=== PATIENT | female | born 1955 | race American Indian/Alaskan Native ===

== ENCOUNTER 2020-11-11 12:25 | Emergency (ER) | payer BC, MEDICARE ==
[2020-11-11 12:42] VITALS: BP 155/77
--- NOTE | 2020-11-11 13:25 | Emergency Department Report ---
ED General Adult HPI - General Chief complaint: Headache Stated complaint: DIZZY/HEADACHE/EAR PAIN Source: patient Mode of arrival: Ambulatory Limitations: No Limitations - History of Present Illness Initial comments: The patient was evaluated in the emergency department for symptoms described in the history of present illness. He/she was evaluated in the context of the global COVID-19 pandemic, which necessitated consideration that the patient might be at risk for infection with the virus that causes COVID-19. Institutional protocols and algorithms that pertain to the evaluation of patients at risk for COVID-19 are in a state of rapid change based on information released by regulatory bodies including the CDC and federal and state organizations. These policies and algorithms were followed during the patient's care in the emergency department. Please note that these policies, procedures and recommendations changed on a rapid basis. 65-year-old -British female presents with complaint of right-sided headache dizziness and sore throat as well as right earache for 2 to 3 days. Patient reports she has a history of vertigo and has been in physical therapy does not feel that it is helping. She does admit that she suffers from anxiety GERD diabetes and right rotator cuff tear. Patient reports that the dizziness is worse when she is looking down or turning to the right when she is lying down. Patient does admit to intermittent nausea but no vomiting. Patient states most of the symptoms started in March 17, 2020. Patient states that she had an endoscopy and colonoscopy April 10. States her next procedure is March 04 any want for another endoscopy. She does complain of neck soreness when she turns to the right. She states that her blood sugars are stable. Does state that she does sometimes get intermittent weakness in her right hand. She complains of head pressure and its mostly on the right side. She states she is up-to-date on getting her eyes examined and denies any change in vision recently. Onset/Timin -: days(s) Location: head, neck Severity scale (0 -10): 8 Quality: other (Feels pressure) Consistency: constant Improves with: none Worsens with: movement, other (Lying down) Associated Symptoms: headaches, nausea/vomiting (No vomiting), other (Headache). denies: diaphoresis, fever/chills, shortness of breath Treatments Prior to Arrival: none - Related Data Home Medications Medication Instructions Recorded Confirmed Last Taken ALPRAZolam 0.5 mg PO PRN PRN 01/27/18 01/27/18 01/25/18 AtorvaSTATin 40 mg PO DAILY 01/27/18 01/27/18 01/26/18 Bisoprolol Fumarate 100 mg PO DAILY 01/27/18 01/27/18 01/26/18 Dicyclomine 10 mg PO PRN PRN 01/27/18 01/27/18 Unknown Glimepiride 2 mg PO DAILY 01/27/18 01/27/18 01/26/18 Losartan Potassium 100 mg PO DAILY 01/27/18 01/27/18 01/27/18 Pantoprazole Sodium 40 mg PO PRN PRN 01/27/18 01/27/18 Unknown Triamterene-Hctz 37.5-25 mg Tb 1 tab PO DAILY 01/27/18 01/27/18 01/27/18 Vitamin D3 50,000 units PO QWEEK 01/27/18 01/27/18 01/23/18 oxyCODONE /ACETAMINOPHEN 5 - 325 mg PO PRN PRN 01/27/18 01/27/18 01/24/18 Previous Rx's Medication Instructions Recorded Last Taken Type Amoxicillin/K Clav Tab [Augmentin 1 tab PO Q12HR 7 Days #14 tab 11/11/20 Unknown Rx 875 mg] Ondansetron [Zofran Odt] 4 mg PO Q8HR #12 tab.rapdis 11/11/20 Unknown Rx Allergies Allergy/AdvReac Type Severity Reaction Status Date / Time codeine AdvReac Mild Itching Verified 01/27/18 07:46 ED Review of Systems ROS: Stated complaint: DIZZY/HEADACHE/EAR PAIN Other details as noted in HPI Comment: All other systems reviewed and negative ED Past Medical Hx - Past Medical History Previous Medical History?: Yes Hx Hypertension: Yes Hx Diabetes: Yes Additional medical history: Neck pain, Vertigo - Surgical History Past Surgical History?: Yes Hx Breast Surgery: Yes (REDUCTION) - Social History Smoking Status: Never Smoker Substance Use Type: None - Medications Home Medications: Home Medications Medication Instructions Recorded Confirmed Last Taken Type ALPRAZolam 0.5 mg PO PRN PRN 01/27/18 01/27/18 01/25/18 History AtorvaSTATin 40 mg PO DAILY 01/27/18 01/27/18 01/26/18 History Bisoprolol Fumarate 100 mg PO DAILY 01/27/18 01/27/18 01/26/18 History Dicyclomine 10 mg PO PRN PRN 01/27/18 01/27/18 Unknown History Glimepiride 2 mg PO DAILY 01/27/18 01/27/18 01/26/18 History Losartan Potassium 100 mg PO DAILY 01/27/18 01/27/18 01/27/18 History Pantoprazole Sodium 40 mg PO PRN PRN 01/27/18 01/27/18 Unknown History Triamterene-Hctz 37.5-25 mg Tb 1 tab PO DAILY 01/27/18 01/27/18 01/27/18 History Vitamin D3 50,000 units PO QWEEK 01/27/18 01/27/18 01/23/18 History oxyCODONE /ACETAMINOPHEN 5 - 325 mg PO PRN PRN 01/27/18 01/27/18 01/24/18 History Amoxicillin/K Clav Tab [Augmentin 1 tab PO Q12HR 7 Days #14 tab 11/11/20 Unknown Rx 875 mg] Ondansetron [Zofran Odt] 4 mg PO Q8HR #12 tab.rapdis 11/11/20 Unknown Rx ED Physical Exam - General Limitations: No Limitations General appearance: alert, in no apparent distress - Head Head exam: Present: atraumatic, normocephalic - Eye Eye exam: Present: normal appearance - ENT ENT exam: Present: mucous membranes moist, normal external ear exam - Expanded ENT Exam Expanded Ear exam: Present: other (Right tympanic membrane fluid level appreciated) Mouth exam: Present: normal external inspection - Neck Neck exam: Present: normal inspection - Respiratory Respiratory exam: Present: normal lung sounds bilaterally - Cardiovascular Cardiovascular Exam: Present: regular rate, normal rhythm. Absent: systolic murmur, diastolic murmur, rubs, gallop - GI/Abdominal GI/Abdominal exam: Present: soft, normal bowel sounds - Extremities Exam Extremities exam: Present: normal inspection, full ROM - Back Exam Back exam: Present: normal inspection - Neurological Exam Neurological exam: Present: alert, oriented X3, normal gait - Expanded Neurological Exam Expanded Cranial nerves: EOM's Intact: Normal, Gag Reflex: Normal, Tongue Deviation: Norm al, Nystagmus: Normal, Facial Sensation: Normal, Facial Palsy with Forehead Movement: Normal, Facial Palsy without Forehead Movement: Normal Cerebellar function: Finger to Nose: Normal, Heel to Peterson: Normal, Romberg: Normal Upper motor neuron: Pavan Neglect: Normal, Pronator Drift: Normal, Babinski Sign: Normal, Sensory Extinction: Normal Sensory exam: Upper Extremity Light Touch: Normal, Upper Extremity Pin Prick: Normal, Upper Extremity Temperature: Normal, UE 2 Point Discrimination: Normal, Lower Extremity Light Touch: Normal, Lower Extremity Pin Prick: Normal, Lower Extremity Temperature: Normal, LE 2 Point Discrimination: Normal Motor strength exam: RUE: 4, LUE: 4, RLE: 4, LLE: 4 Best Eye Response (Jewett): (4) open spontaneously Best Motor Response (Jewett): (6) obeys commands Best Verbal Response (Jewett): (5) oriented Jewett Total: 15 - Psychiatric Psychiatric exam: Present: normal affect, normal mood - Skin Skin exam: Present: warm, dry, intact, normal color. Absent: rash ED Course Vital Signs 11/11/20 12:36 Temperature 98.9 F Pulse Rate 60 Respiratory 20 Rate Blood Pressure 155/77 O2 Sat by Pulse 99 Oximetry ED Medical Decision Making - Radiology Data Radiology results: report reviewed Study Comments [facility] [address] [place] [address] Cat Scan Report Signed Patient: GRACY JONES MR#: [id number] : 1955 Acct:[id number] Age/Sex: 65 / F ADM Date: 11/11/20 Loc: ED Attending Dr: Ordering Physician: NELLA MCGRAW Date of Service: 11/11/20 Procedure(s): CT head/brain wo con Accession Number(s): [id number] cc: NELLA MCGRAW CT HEAD WITHOUT CONTRAST INDICATION / CLINICAL INFORMATION: dizziness head pressure. TECHNIQUE: All CT scans at this location are performed using CT dose reduction for ALARA by means of automated exposure control. COMPARISON: None available. FINDINGS: HEMORRHAGE: None. EXTRA-AXIAL SPACES: Normal in size and morphology for the patient's age. VENTRICULAR SYSTEM: Normal in size and morphology for the patient's age. CEREBRAL PARENCHYMA: No significant abnormality. No acute territorial infarct. MIDLINE SHIFT OR HERNIATION: None. CEREBELLUM / BRAINSTEM: No significant abnormality. ORBITS: Normal as visualized. SOFT TISSUES of HEAD: No significant abnormality. CALVARIUM: No significant abnormality. PARANASAL SINUSES / MASTOID AIR CELLS: Normal as visualized. ADDITIONAL FINDINGS: None. IMPRESSION: 1. No acute intracranial abnormality. Signer Name: Denzel Clark MD Signed: 11/11/2020 2:16 PM Workstation Name: [id number] Transcribed By: TL Dictated By: Denzel Clark MD Electronically Authenticated By: Denzel Clark MD Signed Date/Time: 11/11/201415 DD/ 10 TD/TT: - Medical Decision Making 65-year-old -British female presents with complaint of right-sided headache dizziness and sore throat as well as right earache for 2 to 3 days. Patient reports she has a history of vertigo and has been in physical therapy does not feel that it is helping. She does admit that she suffers from anxiety GERD diabetes and right rotator cuff tear. Patient reports that the dizziness is worse when she is looking down or turning to the right when she is lying down. Patient does admit to intermittent nausea but no vomiting. Patient states most of the symptoms started in March 17, 2020. Patient states that she had an endoscopy and colonoscopy April 10. States her next procedure is March 04 any want for another endoscopy. She does complain of neck soreness when she turns to the right. She states that her blood sugars are stable. Does state that she does sometimes get intermittent weakness in her right hand. She complains of head pressure and its mostly on the right side. She states she is up-to-date on getting her eyes examined and denies any change in vision recently. CT head neg for any abnormalities. Normal neurological examination. Discussed with patient on taking Benadryl as it is a first generation antihistamine taken help with vertigo. Also discussed with patient I will place on antibiotics for vertigo and tinnitus that could be Vestibular neuritis or labyrinthitis. We will place patient on Augmentin 875 bid. - Differential Diagnosis Vestibular neuritis or labyrinthitis, lesiom or mass of brain Critical care attestation.: If time is entered above; I have spent that time in minutes in the direct care of this critically ill patient, excluding procedure time. ED Disposition Clinical Impression: Head ache, Chronic vertigo, Tinnitus, right, Fluid level behind tympanic membrane of right ear Disposition: 01 HOME / SELF CARE / HOMELESS Is pt being admited?: No Does the pt Need Aspirin: No Condition: Stable Instructions: Dizziness, [id number] Additional Instructions: Recommend Benadryl 50 mg every 8 hours while at home as needed for vertigo. Can also take Claritin once a day. Recommend zinc, milk thistle, bitter melon, pre and post biotics and magnesium and D3. Prescriptions: Amoxicillin/K Clav Tab [Augmentin 875 mg] 1 tab PO Q12HR 7 Days #14 tab Ondansetron [Zofran Odt] 4 mg PO Q8HR #12 tab.rapdis Referrals: Your, Primary Care provider [Other] - 3-5 Days JENNIFER QUIGLEY II, MD [Staff Physician] - 3-5 Days Time of Disposition: 15:57
--- NOTE | 2020-11-11 14:21 | Cat Scan Report ---
CT HEAD WITHOUT CONTRAST INDICATION / CLINICAL INFORMATION: dizziness head pressure. TECHNIQUE: All CT scans at this location are performed using CT dose reduction for ALARA by means of automated e xposure control. COMPARISON: None available. FINDINGS: HEMORRHAGE: None. EXTRA-AXIAL SPACES: Normal in size and morphology for the patient's age. VENTRICULAR SYSTEM: Normal in size and morphology for the patient's age. CEREBRAL PARENCHYMA: No significant abnormality. No acute territorial infarct. MIDLINE SHIFT OR HERNIATION: None. CEREBELLUM / BRAINSTEM: No significant abnormality. ORBITS: Normal as visualized. SOFT TISSUES of HEAD: No significant abnormality. CALVARIUM: No significant abnormality. PARANASAL SINUSES / MASTOID AIR CELLS: Normal as visualized. ADDITIONAL FINDINGS: None. IMPRESSION: 1. No acute intracranial abnormality. Signer Name: Denzel Clark MD Signed: 11/11/2020 2:16 PM Workstation Name: [id number]
== END 2020-11-11 16:45 | disposition home or self-care (01) ==
LOC: ED 12:25
DX: R51.9 Headache, unspecified (principal); R42 Dizziness and giddiness; H93.11 Tinnitus, right ear; H73.91 Unspecified disorder of tympanic membrane, right ear; I10 Essential (primary) hypertension; E11.8 Type 2 diabetes mellitus with unspecified complications; M54.2 Cervicalgia; Z98.890 Other specified postprocedural states; Z88.5 Allergy status to narcotic agent
CPT/HCPCS: 70450; 99283